=== PATIENT | male | born 1965 | race Caucasian/White ===

== ENCOUNTER 2021-05-20 07:36 | Emergency (ER) | payer OTHER, SELFPAY ==
--- NOTE | 2021-05-20 07:46 | ED.MALEGU ---
HPI - Male Genitourinary General Chief complaint: Urogenital-Male Stated complaint: UTI has not urinated since yesterday Time Seen by Provider: 05/20/21 07:46 Source: patient Mode of arrival: ambulatory Limitations: no limitations History of Present Illness HPI Narrative: 55-year-old man comes in today complaining the urge to urinate without being able to urinate. Patient states he last urinated at 7:00 p.m. last evening he feels like he is going to go but only has had a small amount this morning in the ER (5cc). He has had symptoms for the last for 4 days and saw his doctor yesterday where he was diagnosed with UTI placed on Cipro. He feels nauseated but has had no vomiting, flank pain, fever, or prior similar symptoms. He states he takes [id number] vitamins and a OTC prostate health medication. Complaint: other (Unable to urinate) Onset (ago): day(s) (1) Duration: constant Location: abdomen Severity: severe Quality: sharp Relieving factors: none Associated symptoms: Reports urinary retention Related Data Allergies Allergy/AdvReac Type Severity Reaction Status Date / Time No Known Allergies Allergy Verified 05/20/21 07:53 Review of Systems Review of Systems: All systems reviewed & are unremarkable except as noted in HPI and below Constitutional: Constitutional: Denies chills and Denies fever(s) ENT: Denies nasal congestion and Denies sore throat Cardiovascular: Cardiovascular: Denies chest pain and Denies radiating jaw, neck or arm pain Respiratory: Respiratory: Denies cough and Denies dyspnea Gastrointestinal: Gastrointestinal: Reports abdominal pain, Denies diarrhea, Reports nausea and Denies vomiting Genitourinary: Genitourinary: Denies hematuria, Reports oliguria, Denies dysuria and Reports urinary frequency (Until last night) Musculoskeletal: Musculoskeletal: Denies back pain, Denies arthralgias and Denies joint swelling Integumentary/Breasts: Skin/Breast: Denies pruritus, Denies erythema and Denies rash Neurologic: Denies vertigo, Denies dizziness and Denies syncope COUNT INCLUDES THE [facility] Past Medical History Medical History (Updated 05/20/21 @ 08:09 by Jose Stephenson MD) Hypertension Surgical History Surgical History (Updated 05/20/21 @ 08:06 by Jose Stephenson MD) History of intestinal surgery Social History Social History (Updated 05/20/21 @ 08:06 by Jose Stephenson MD) Smoking status: Current every day smoker Substance use: never Living arrangements: with family 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 Resp: Effort & Inspection: normal respiratory effort and not labored Auscultation: clear to auscultation bilaterally, no rales, no rhonchi and no wheezes Cardio: Rate: regular rate Rhythm: regular rhythm Heart sounds: no murmurs GI: GI Palp: Yes Soft to palpation and Yes Tenderness to palpation present (GI) (Suprapubic) Auscultation: normal bowel sounds : General: No CVA tenderness Skin: General skin exam: normal color, no jaundice and no pallor Rashes: no rashes Neuro: General: patient oriented x3, moves all extremities and no focal motor deficits Cranial nerves: Yes Nystagmus not present Speech: normal speech Gait exam (Neuro): Normal gait present Extrem: General: normal to inspection and no clubbing, cyanosis or edema Psych: Appearance: grossly normal and well kempt Mental Status: mental status grossly normal Affect: normal affect Attitude: cooperative Thought content: Yes Normal thought content present Course Vital Signs Vital signs: Vital Signs Temperature 36.6 C 05/20/21 07:54 Pulse Rate 78 05/20/21 07:54 Respiratory Rate 20 05/20/21 07:54 Blood Pressure 147/113 H 05/20/21 07:54 Pulse Oximetry 100 05/20/21 07:54 Temperature 36.6 C 05/20/21 07:54 Pulse Rate 78 05/20/21 07:5
[2021-05-20 07:54] VITALS: BP 147/113; PULSE 78; RESP 20; TEMP 36.6; O2SAT 100
--- NOTE | 2021-05-20 08:34 | PC.NURSE ---
Urine obtained and walked to lab.
[2021-05-20 08:39] LABS: Appearance Urine Clear (Clear); Bilirubin Urine Negative (Negative); Color Urine Light Yellow (Yellow); Glucose Urine UA Trace (Negative); Ketones Urine Negative (Negative); Leukocyte Esterase Ur Negative (Negative); Nitrate Urine Negative (Negative); Protein Urine 1+ (Negative); Specific Grav Ur >= 1.030 (1.010-1.020); Urobilinogen Urine 0.2 mg/dL (0.2-1.0)
[2021-05-20 08:46] LABS: Add Urine Microscopic? YES; Blood Urine Trace-Intact (Negative)
[2021-05-20 08:47] LABS: Bacteria Urine 1+ /hpf; Squamous Epithelial Cell Urine Few /hpf (Few); WBC Urine None seen /hpf (0-3)
--- NOTE | 2021-05-20 09:00 | PC.NURSE ---
Pt received instructions for leg bag and restrepo. Verbalized understanding. Notified would need to call PCP On Saturday for follow up and restrepo was to remain in place until follow up. All questions and concerns addressed.
[2021-05-20 09:06] VITALS: BP 116/71; PULSE 74; RESP 16; O2SAT 98
== END 2021-05-20 09:10 | disposition home or self-care (01) ==
PROVIDERS: Emergency Provider Emergency Medicine
DX: N39.0 Urinary tract infection, site not specified (principal); R33.9 Retention of urine, unspecified
CPT/HCPCS: 81001; 87086; 99283